=== PATIENT | female | born 1950 | race Caucasian/White ===

== ENCOUNTER 2023-10-06 10:21 | Day surgery (SDC) | payer MEDICARE, MEDICAID ==
[~2023-10-06] VITALS: Ht 167.6 cm; Wt 75.0 kg
[2023-10-06] MEDS ORDERED: METO100T14 PO (11:52)
[2023-10-06] MEDS ORDERED: PANT40TA54 PO (11:52)
[2023-10-06] MEDS ORDERED: LATA2.5D14 EACHEYE (11:52)
[2023-10-06] MEDS ORDERED: BUDE0.5A3 NEB (11:52)
[2023-10-06] MEDS ORDERED: ALBU2.5V10 NEB (11:52)
[2023-10-06] MEDS ORDERED: ERGO500056 PO (11:52)
[2023-10-06] MEDS ORDERED: SUCR1TAB PO (11:52)
[2023-10-06 12:17] VITALS: BP 163/79; PULSE 116; RESP 16
[2023-10-06] MEDS ORDERED: diphenhydrAMINE 50 mg/ml inj ONE (13:44)
[2023-10-06] MEDS ORDERED: fentaNYL/PF 50MCG/1 ML 2ML syringe ONE (13:44)
[2023-10-06] MEDS ORDERED: MIDAZolam 1 MG/ML 5ML VIAL ONE (13:44)
[2023-10-06 14:10] VITALS: BP 114/60; PULSE 57; RESP 16; O2SAT 96
[2023-10-06 14:20] VITALS: BP 110/48; PULSE 54; RESP 18; O2SAT 93
[2023-10-06 14:30] VITALS: BP 103/54; PULSE 52; RESP 16; O2SAT 92
[2023-10-06 14:40] VITALS: BP 137/75; PULSE 63; RESP 20; O2SAT 98
== END 2023-10-06 15:00 | disposition home or self-care (01) ==
LOC: GI LAB 10:21
PROVIDERS: ATTEND Internal Medicine Gastroenterology
DX: R12 Heartburn (principal); K22.4 Dyskinesia of esophagus; K31.89 Other diseases of stomach and duodenum; K29.50 Unspecified chronic gastritis without bleeding; K21.9 Gastro-esophageal reflux disease without esophagitis; I10 Essential (primary) hypertension
CPT/HCPCS: 43239; A4620; J1200; J2250; J3010; J7030; Z7512; 99152